=== PATIENT | female | born 1940 | race Caucasian/White ===

== ENCOUNTER 2017-06-15 13:28 | Inpatient (IN) | payer MEDICARE ==
[~2017-06-15] VITALS: Ht 162.6 cm; Wt 75.6 kg
[2017-06-15 14:06] LABS: BASOPHILS % (AUTO) 0.9 % (0.0-5.0); EOSINOPHILS % (AUTO) 1.7 % (0.0-8.0); LYMPHOCYTES % (AUTO) 15.9 % (21.0-51.0); MEAN CORPUSCULAR HGB CONC 32.8 g/dL (32.0-36.0); MEAN CORPUSCULAR VOLUME 88.5 fL (79-99); MONOCYTES % (AUTO) 7.4 % (3.0-13.0); NEUTROPHILS % (AUTO) 74.1 % (40.0-77.0); PLATELET COUNT (AUTO) 242 K/uL (130-400); RED BLOOD CELL COUNT(AUTO) 4.18 MIL/uL (4.00-5.50); RED CELL DISTRIBUTION WIDTH 13.6 % (11.0-15.5); WHITE BLOOD COUNT (AUTO) 8.2 K/uL (4.8-10.8)
[2017-06-15 14:16] LABS: CREATININE 1.7 mg/dL (0.5-1.5); POTASSIUM 4.3 mmol/L (3.5-5.1)
[2017-06-15 14:18] LABS: INR 0.93 (0.85-1.15); PARTIAL THROMBOPLASTIN TIME 23.9 SEC (26.3-35.5); PROTHROMBIN TIME 9.8 SEC (9.6-11.6)
[2017-06-15 14:20] LABS: ALBUMIN 3.9 g/dL (3.5-5.0); BILIRUBIN,TOTAL 0.3 mg/dL (0.2-1.0); TOTAL PROTEIN, SERUM 7.6 g/dL (6.0-8.3)
[2017-06-15 21:50] LABS: HEMATOCRIT 34.4 % (36-48)
[2017-06-15] MEDS ORDERED: ACETAMINOPHEN EXTRA STRENGTH 500 MG TABLET ONE (22:02)
[2017-06-16 02:47] VITALS: BP 152/76
[2017-06-16] MEDS ORDERED: ASPI-555 PO (03:07)
[2017-06-16] MEDS ORDERED: OMEP20CA10 PO (03:07)
[2017-06-16] MEDS ORDERED: CHLO25TA3 PO (03:07)
[2017-06-16] MEDS ORDERED: FISH1CAP50 PO (03:07)
[2017-06-16] MEDS ORDERED: AMLO10TA2 PO (03:07)
[2017-06-16] MEDS ORDERED: LISI-613 PO (03:07)
[2017-06-16] MEDS ORDERED: CHOL100040 PO (03:07)
[2017-06-16] MEDS ORDERED: PRAV40TA3 PO (03:07)
[2017-06-16] MEDS ORDERED: LEVO125 PO (03:07)
[2017-06-16] MEDS ORDERED: ACETAMINOPHEN EXTRA STRENGTH 500 MG TABLET PO PRN (03:15)
[2017-06-16] MEDS ORDERED: ACETAMINOPHEN EXTRA STRENGTH 500 MG TABLET ONE (03:17)
[2017-06-16] MEDS ORDERED: LIDOCAINE HCL-MPF 1% 2ML VIAL ONE (05:50)
[2017-06-16 05:55] LABS: HEMATOCRIT 35.3 % (36-48); MEAN CORPUSCULAR HEMOGLOBIN 28.3 pg (27.0-33.0); MEAN CORPUSCULAR HGB CONC 32.7 g/dL (32.0-36.0); MEAN CORPUSCULAR VOLUME 86.6 fL (79-99); PLATELET COUNT (AUTO) 181 K/uL (130-400); RED BLOOD CELL COUNT(AUTO) 4.08 MIL/uL (4.00-5.50); RED CELL DISTRIBUTION WIDTH 13.5 % (11.0-15.5); WHITE BLOOD COUNT (AUTO) 6.8 K/uL (4.8-10.8)
[2017-06-16 07:00] VITALS: BP 123/68
[2017-06-16 12:05] VITALS: BP 133/73
== END 2017-06-16 12:35 | disposition home or self-care (01) | DRG 393 ==
LOC: EDH 13:28 → EDHIP 18:38 → 4CH 06-16 02:30
PROVIDERS: ADMIT Family Medicine; ATTEND Family Medicine
DX: K64.9 Unspecified hemorrhoids (principal); K57.91 Diverticulosis of intestine, part unspecified, without perforation or abscess with bleeding; N17.9 Acute kidney failure, unspecified; D64.9 Anemia, unspecified; I12.9 Hypertensive chronic kidney disease with stage 1 through stage 4 chronic kidney disease, or unspecified chronic kidney disease; K59.09 Other constipation; R14.0 Abdominal distension (gaseous); N18.9 Chronic kidney disease, unspecified; Z86.010 Personal history of colon polyps
CPT/HCPCS: 36415; 80053; 82270; 85025; 85027; 85610; 85730; 86900; 86901; J3490

== ENCOUNTER → 2018-07-03 | Outpatient (CLI) | payer MEDICARE ==
[~2018-07-03] MED LIST: AMLO10TA7 PO; CHLO25TA3 PO; CHOL100040 PO; FISH1CAP50 PO; LEVO125 PO; LISI-613 PO; OMEP20CA10 PO; PRAV40TA3 PO
== END | disposition home or self-care (01) ==
LOC: RAH 13:40
PROVIDERS: ATTEND Family Medicine
DX: M17.0 Bilateral primary osteoarthritis of knee (principal)
CPT/HCPCS: 73562